=== PATIENT | male | born 1930 | race Caucasian/White ===

== ENCOUNTER 2016-09-16 06:20 | Emergency (ER) | payer BC, MEDICARE, OTHER ==
[2016-09-16 06:21] VITALS: BMI 26.5
[2016-09-16 06:28] VITALS: TEMP 97.5
--- NOTE | 2016-09-16 06:34 | EDPRACDOC ---
- General Information Information Source: Patient Mode Of Arrival: Ambulance - History of Present Illness Onset: 0500 HPI: PT WOKE UP [facility] WITH A NOSE BLEED. HE THINKS IT'S BLEEDING OUT OF BOTH NARES. PT CALLED EMS B/C IT WOULD NOT STOP BLEEDING. HE IS ON XARELTO. Blood Location: Bilateral Naris Context Mechanism: Reports: Spontaneous onset Amount: Moderate Use of: Reports: Other (XARELTO) Relevent History of: Reports: None Severity: Reports: Tbsp. Bleeding: Reports: Uncontrolled Associated Signs & Symptoms: Reports: None <Mckenzie Mclaughlin - Last Filed: 09/16/16 06:54> <Laura Patel - Last Filed: 09/16/16 08:18> - General Information Chief Complaint: Nosebleed Stated Complaint: NOSEBLEED Time Seen by Provider: 09/16/16 06:32 Home Medications: Home Medications Lisinopril [Prinivil] 20 mg PO DAILY 08/23/14 Metoprolol Tartrate [Lopressor] 50 mg PO BID #60 tablet 08/26/14 Rivaroxaban [Xarelto] 15 mg PO BID #42 tablet 08/26/14 Cephalexin Monohydrate [Keflex] 500 mg PO Q6H #28 cap 09/16/16 Hydrocodone/Acetaminophen [Lortab 5-325 mg Tablet] 1 each PO Q4H PRN #15 tablet 09/16/16 Allergies/Adverse Reactions: Allergies Allergy/AdvReac Type Severity Reaction Status Date / Time No Known Allergies Allergy Verified 09/16/16 06:28 - Treatment Prior to ED Arrival Reported Medications/Treatment [facility] Treatment BLS <Mckenzie Mclaughlin - Last Filed: 09/16/16 06:54> - Treatment Prior to ED Arrival Reported Medications/Treatment [facility] Treatment B[facility] <Laura Patel - Last Filed: 09/16/16 08:18> ED Past Medical History - Patient Medical History Cardiac History: Reports: Hypertension Respiratory History: Reports: Pulmonary Embolism (NEW AUG 2014). Denies: Pneumonia GI/ History: Reports: Kidney Stones Musculoskeletal History: Reports: Arthritis. Denies: Gout Psychological History: Denies: Depression, Substance Use Disorder Surgical History: Reports: Hernia Surgery (INGUINAL) - Family Medical History Reports: Diabetes (FATHER, onset in his late 70s). Denies: Cancer, Stroke, Cardiac Disorders. Comment Only: Hypertension (UNSURE) - Social Medical History Smoking Status: Never smoker Social History: Denies: Substance Use Disorder ETOH: None Substance Abuse: None Lives In: Home <Mckenzie Mclaughlin - Last Filed: 09/16/16 06:54> - Patient Medical History Respiratory History: Reports: Pulmonary Embolism <Laura Patel Ana - Last Filed: 09/16/16 08:18> EDM Review of Systems - Review of Systems ROS Negative Except as Marked: Yes All systems reviewed and were negative except as marked Nose: Bleeding <Mckenzie Mclaughlin - Last Filed: 09/16/16 06:54> - Physical Exam Constitutional: Alert (Awake), No apparent distress Oriented to: Time, Person, Place Last recorded Vital Signs: Last Vital Signs Temp 97.5 F 09/16/16 06:24 Pulse 91 09/16/16 06:24 Resp 20 09/16/16 06:24 BP 193/85 H 09/16/16 06:24 Pulse Ox 93 09/16/16 06:24 Oxygen Pulse Oxygen Saturation 93 O2 Device Room Air Oxygen Flow Rate Fraction of Inspired Oxygen ( FIO2) - HEENT Head: Normal ( normocephalic) Eye Exam: Normal (PERRL, EOMI, Sclera white) Oropharynx: Normal (Pharynx:Moist without exudate,Gums-no swelling) ENT EAC: Normal TMJ: Normal Nose: Bleeding Neck: Normal (FROM, trachea at midline) - Respiratory/Cardiovascular Respiratory: Normal - CTA (BBS clear to auscultation without adventitious sounds ) Cardiovascular: Normal (RRR without murmur, gallop or rub) - GI Auscultation: Normal (NABS) Palpation: Normal (Soft,No rebound or guarding, non distended) Tenderness: Non tender Grover's Sign: Negative - Musculoskeletal Back: Normal (Non-Tender) Extremities: Normal (Normal tone, Pulses 2+ No cyanosis or edema, FROM) - Integumentary Skin: Normal, Warm, Dry Lymphatics: Normal (no adenopathy) <Mckenzie Mclaughlin - Last Filed: 09/16/16 06:54> - Physical Exam Last recorded Vital Signs: Last Vital Signs Temp 97.5 F 09/16/16 06:24 Pulse 53 L 09/16/16 07:06 Resp 20 09/16/16 07:06 BP 103/54 L 09/16/16 07:06 Pulse Ox 88 L 09/16/16 07:06 Oxygen Pulse Oxygen Saturation 88 O2 Device Room Air Oxygen Flow Rate Fraction of Inspired Oxygen ( FIO2) <Reina Pateldy N - Last Filed: 09/16/16 08:18> ED Procedures - Nasal Cautery and Pack Informed of risks, benefits and alternatives described: Yes Informed Consent Signed: Verbal Indication: Anterior Epistaxis Packing used: Inflatable balloon Nasal Cautery and Pack Notes:: I 1ST PACKED RIGHT SIDE, BUT THE LEFT SIDE STARTED BLEEDING PROFUSELY, SO I PACKED THAT SIDE TOO. <Mckenzie Mclaughlin - Last Filed: 09/16/16 06:54> - Re-evaluation Re-evaluation 2 Re-evaluation Time: 07:15 (I ASSUMED CARE FROM DR MCLAUGHLIN AFTER JACK NARES PACKING) PT UP, JUST HAD LARGE BOWEL MOVEMENT. Re-evaluation 3 Re-evaluation Time: 08:17 (MINOR DRIBBLE OF SEROSANG FLUID. NO ACTIVE BLEEDING. NO HYPOTENSION OR ORHTOSTASIS. STABLE FOR DISCHARGE.) <Laura Patel N - Last Filed: 09/16/16 08:18> - Departure Yes I personally saw and evaluated the patient. Education/Counseling Given To: Patient Education/Counseling Given Regarding: Diagnosis, Treatment, Follow Up <Mckenzie Mclaughlin - Last Filed: 09/16/16 06:54> - Departure Disposition: Home <AmandaLaura N - Last Filed: 09/16/16 08:18> - Departure Condition: Stable Final Diagnosis: Epistaxis Instructions: Nosebleed (ED) Referrals: Narciso Contreras MD [Primary Care Provider] - One Week Gulshan Millard DO [Staff Physician] - One Week Prescriptions: New Cephalexin Monohydrate [Keflex] 500 mg PO Q6H #28 cap Hydrocodone/Acetaminophen [Lortab 5-325 mg Tablet] 1 each PO Q4H PRN #15 tablet PRN Reason: Pain No Action Lisinopril [Prinivil] 20 mg PO DAILY Metoprolol Tartrate [Lopressor] 50 mg PO BID #60 tablet Rivaroxaban [Xarelto] 15 mg PO BID #42 tablet Additional Instructions: HOLD XARELTO FOR 2 DAYS
[2016-09-16 08:30] VITALS: BP 173/74; PULSE 85
== END 2016-09-16 08:29 | disposition home or self-care (01) ==
LOC: ED 06:20
DX: R04.0 Epistaxis (principal)
CPT/HCPCS: 99283